=== PATIENT | male | born 1945 | race Caucasian/White ===

== ENCOUNTER 2016-04-18 18:34 | Emergency (ER) | payer OTHER, MEDICARE ==
[~2016-04-18 18:34] MED LIST: ADVAIR DISKUS 21 DSK PO; ASPIRIN CHILDRE81 MG PO; CLOPIDOGREL75 MG PO; CRESTOR40 MG PO; DIOVAN HCT 25 M1 TA1 PO; LEVEMIR FLEX100 U/M1 SC; METFORMIN HYDR500 MG PO; METOPROLOL SUC100 MG PO; NORVASC 5MG TAB5 MG PO; SPIRIVA 18 MCG18 MCG INH
[2016-04-18 19:27] LABS: ABSOLUTE BASOPHIL COUNT 0.1 /CUMM (0.0-0.2); ABSOLUTE EOSINOPHIL COUNT 0.2 /CUMM (0.0-0.7); ABSOLUTE GRANULOCYTE CT 5.3 /CUMM (1.4-6.5); ABSOLUTE LYMPH COUNT 1.1 /CUMM (1.2-3.4); ABSOLUTE MONOCYTE COUNT 0.4 /CUMM (0.10-0.60); EOSINOPHIL % 2.8 % (0-5); GRANULOCYTE % 73.9 % (42.2-75.2); HEMATOCRIT 46.4 % (42-52); MEAN CORPUSCULAR HGB 29.2 PG (27.0-31.0); MEAN CORPUSCULAR HGB CONC 34.1 G/DL (33.0-37.0); MEAN CORPUSCULAR VOLUME 85.5 FL (80.0-94.0); PLATELET COUNT 204 /CUMM (130-400); RBC DISTRIBUTION WIDTH 14.3 % (11.5-14.5); RED BLOOD CELL CT 5.43 /CUMM (4.70-6.10); WHITE BLOOD CELL COUNT 7.1 /CUMM (4.8-10.8)
--- NOTE | 2016-04-18 20:03 | RADIOLOGY REPORT ---
EXAMINATION: XR CHEST CLINICAL INFORMATION: Chest pain, cough COMPARISON: 02/08/2014 TECHNIQUE: PA and lateral views of the chest were obtained. FINDINGS: No significant abnormality is noted involving the heart, lungs, mediastinum, bony thorax, or soft tissues. IMPRESSION: No acute pulmonary disease.
--- NOTE | 2016-04-18 22:00 | ED CARDIAC/CP/PALPITATIONS ---
History of Present Illness General Chief Complaint: Chest Pain Stated Complaint: PT IS HAVING CHEST PAIN AND RIGHT ARM PAIN Source: patient, old records Exam Limitations: no limitations Vital Signs & Intake/Output Vital Signs & Intake/Output Vital Signs Date Time Temp Pulse Resp B/P Pulse O2 O2 Flow FiO2 Ox Delivery Rate 04/18 2217 98.3 90 20 167/78 93 Room Air 04/18 1950 95 04/18 190 99.1 98 16 147/73 94 Room Air 04/18 1906 Room Air 04/18 1846 99.0 110 20 181/86 98 Room Air Room Air Allergies Coded Allergies: NO KNOWN ALLERGIES (04/18/16) Reconcile Medications Albuterol Sulfate (Proair Hfa) 90 MCG HFA.AER.AD 2-4 PUF INH Q4-6 PRN PRN shortness of breath Amlodipine (Norvasc 5MG Tab) 5 MG TABLET 1 TAB PO QPM BP (Reported) Aspirin (Children's Aspirin) 81 MG TAB.CHEW 1 TAB PO DAILY HEART HEALTH ( Reported) Benzonatate (Tessalon Perle) 100 MG CAPSULE 1 CAP PO TID PRN cough CLOPIDOGREL BISULFATE (Clopidogrel) 75 MG TABLET 1 TAB PO QPM BLOOD THINNER ( Reported) FLUTICASONE/SALMETEROL (Advair 250-50 Diskus) 250 MCG-50 MCG/DOSE BLST.W.DEV 1 PUFF PO BREATHING PROBLEMS (Reported) Hydrochlorothiazide/Valsarta (Diovan Hct 25 MG-320 MG) 1 TAB TAB 1 TAB PO QPM BP (Reported) Insulin Detemir (Levemir Flextouch) 100 UNIT/ML (3 ML) INSULN.PEN 20 UNITS SC QHS DIABETES METFORMIN HCL (Metformin Hydrochloride) 500 MG TABLET 1 TAB PO BID DIABETES ( Reported) Metoprolol Succinate 100 MG TAB.ER.24H 1 TAB PO QPM BP (Reported) Prednisone 20 MG TABLET 1 TAB PO BID bronchitis Rosuvastatin Calcium (Crestor) 40 MG TAB 1 TAB PO QPM CHOLESTEROL (Reported) Tiotropium Oley (Spiriva) 18 MCG CAP.W.DEV 1 CAP INH DAILY BREATHING PROBLEMS (Reported) Tramadol HCl (Ultram) 50 MG TABLET 1-2 TAB PO Q6PRN PRN severe pain Core Measure Meds Pre-Hospital aspirin Triage Note: PT STATES HE HAS HAD CHEST PAIN SINCE ABOUT NOON TODAY. PT STATES HE HAS HAD A CONGESTION AND COUGH FOR 2 WEEKS. DENIES FEVERS. PT ALSO STATES HE HAS PAIN DOWN HIS RIGHT ARM. SKIN WARM AND DRY Triage Nurses Notes Reviewed? yes Onset: Afternoon Duration: hour(s):, constant, continues in ED Timing: recent history Quality/Severity: mild, aching Location: central Radiation: no radiation Activities at Onset: rest Prior Chest Pain/Card Workup: cardiac cath, heart attack, stress test Modifying Factors: Worsens With: coughing. Nitro Today/Relief: no nitro taken today Aspirin Today: 81 mg x 2, provided at home Associated Symptoms: right arm pain 2 weeks prior to admission HPI: 2 weeks prior to admission patient complains of right arm shoulder pain worse with movement constant. 8 hours prior to admission patient complains of productive cough mild achy central chest pain nonradiating associated with cough. He denies fever chills nausea vomiting diarrhea abdominal pain shortness of breath headache dysuria rash bleeding Past History Travel History Traveled to [place] past 21 day No Medical History Any Pertinent Medical History? see below for history Neurological: NONE EENT: NONE Cardiovascular: hypertension, hyperlipidemia Endocrine: diabetes History of MRSA: No History of VRE: No History of CDIFF: No Surgical History Surgical History: non-contributory Psychosocial History Who do you live with Spouse Services at Home None What is your primary language Lao Tobacco Use: Quit >30 days ago Daily Tobacco Use Amount/Type: => 5 Cigarettes daily ETOH Use: denies use Illicit Drug Use: denies illicit drug use Family History Hx Contributory? No Review of Systems Review of Systems Constitutional: Reports: no symptoms. EENTM: Reports: no symptoms. Respiratory: Reports: see HPI, cough. Cardiovascular: Reports: see HPI, chest pain. GI: Reports: no symptoms. Genitourinary: Reports: no symptoms. Musculoskeletal: Reports: no symptoms. Skin: Reports: no symptoms. Neurological/Psychological: Reports: no symptoms. Hematologic/Endocrine: Reports: no symptoms. Immunologic/Allergic: Reports: no symptoms. All Other Systems: Reviewed and Negative Physical Exam Physical Exam General Appearance: well developed/nourished, alert, awake, anxious, mild distress, obese Head: atraumatic, normal appearance Eyes: Bilateral: normal appearance, PERRL, EOMI. Ears, Nose, Throat: normal pharynx, normal ENT inspection, hearing grossly normal Neck: normal inspection, supple, full range of motion, no midline tenderness Respiratory: normal breath sounds, chest non-tender, no respiratory distress, quiet respiration, lungs clear Cardiovascular: regular rate/rhythm, normal peripheral pulses, norml femoral pulses equa Peripheral Pulses: 4+ carotid (R), 4+ carotid (L) Gastrointestinal: normal bowel sounds, soft, non-tender, no organomegaly Back: normal inspection, normal range of motion Extremities: normal inspection, normal capillary refill, normal range of motion, no edema Neurologic/Psych: no motor/sensory deficits, awake, alert, oriented x 3, normal gait, normal mood/affect, 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 Skin: intact, normal color, warm/dry Lymphatic: no anterior cervical bernabe Core Measures ACS in differential dx? Yes Severe Sepsis Present: No Septic Shock Present: No Progress Differential Diagnosis: AMI, CHF/pulm edema, hyperkalemia, pneumonia Plan of Care: Orders Procedure Date/time Status TROPONIN LEVEL 04/18 1918 Complete COMPREHENSIVE METABOLIC PANEL 04/18 1918 Complete CBC WITHOUT DIFFERENTIAL 04/18 1918 Complete EKG 04/18 1836 Active Laboratory Tests 04/18/161919: Anion Gap 10, Estimated GFR > 60, BUN/Creatinine Ratio 32.5 H, Glucose 320 H, Calcium 9.2, Total Bilirubin 1.4 H, AST 21, ALT 36, Alkaline Phosphatase 83, Troponin I < 0.01, Total Protein 6.5, Albumin 3.8, Globulin 2.7, Albumin/ Globulin Ratio 1.4, CBC w Diff NO MAN DIFF REQ, RBC 5.43, MCV 85.5, MCH 29.2, RDW 14.3, MPV 7.0 L, Gran % 73.9, Lymphocytes % 16.2 L, Monocytes % 6.1, Eosinophils % 2.8, Basophils % 1.0, Absolute Granulocytes 5.3, Absolute Lymphocytes 1.1 L, Absolute Monocytes 0.4, Absolute Eosinophils 0.2, Absolute Basophils 0.1, PUBS MCHC 34.1 Diagnostic Imaging: Viewed by Me: Radiology Read. Discussed w/RAD: Radiology Read. CXR Impression: no acute abnormality Initial ED EKG: normal axis, normal intervals, normal p-waves, normal QRS complex, normal sinus rhythm, no ST T wave changes Prior EKG: unchanged Rhythm Strip: normal sinus rhythm Departure Departure Time of Disposition: 2231 Disposition: HOME OR SELF CARE Condition: Stable Clinical Impression Primary Impression: Chest wall pain Secondary Impressions: Arm pain, musculoskeletal Qualifiers: Laterality: right Qualified Code: M79.601 - Pain in right arm Bronchitis Referrals: MAGDALENE ZHAO MD (PCP/Family) Departure Forms: Customer Survey General Discharge Information Prescriptions: Current Visit Scripts Tramadol HCl (Ultram) 1-2 TAB PO Q6PRN PRN severe pain #30 TAB Albuterol Sulfate (Proair Hfa) 2-4 PUF INH Q4-6 PRN PRN shortness of breath #1 INHAL Prednisone 1 TAB PO BID #10 TAB Benzonatate (Tessalon Perle) 1 CAP PO TID PRN cough #21 CAP Critical Care Note Critical Care Note Critical Care Time: non-applicable
[2016-04-18 22:18] VITALS: BP 167/78
[2016-04-18] MEDS ORDERED: ULTRAM50 M1 PO (22:34)
[2016-04-18] MEDS ORDERED: TESSALON PERLE100 M1 PO ×2 (22:34→22:41)
[2016-04-18] MEDS ORDERED: PREDNISONE20 M1 PO ×2 (22:34→22:41)
[2016-04-18] MEDS ORDERED: PROAIR HFA8.5 GM INH ×2 (22:34→22:41)
== END 2016-04-18 22:58 ==
LOC: ERH 18:34
PROVIDERS: Emergency Medicine
DX: R07.89 Other chest pain (principal); J40 Bronchitis, not specified as acute or chronic; M79.601 Pain in right arm; F17.210 Nicotine dependence, cigarettes, uncomplicated
CPT/HCPCS: 1263; 93005; 93010; 96372; J1885